=== PATIENT | female | born 1950 ===

== ENCOUNTER 2018-12-26 07:42 | Outpatient (CLI) | payer MEDICARE | END 2018-12-26 07:43 | disposition home or self-care (01) | LOC: C.LAB 07:42 | DX: E66.09 Other obesity due to excess calories (principal) ==

== ENCOUNTER 2019-02-18 11:54 | Outpatient (CLI) | payer MEDICARE | END 2019-02-18 11:55 | disposition home or self-care (01) | LOC: C.USIC 11:54 | DX: N60.01 Solitary cyst of right breast (principal) ==

== ENCOUNTER 2019-02-25 11:34 | Outpatient (CLI) | payer MEDICARE | END 2019-02-25 11:35 | disposition home or self-care (01) | LOC: C.LAB 11:34 | DX: E03.9 Hypothyroidism, unspecified (principal); E66.09 Other obesity due to excess calories ==